=== PATIENT | female | born 1995 | race Caucasian/White ===

== ENCOUNTER 2017-08-13 15:44 | Emergency (ER) | payer OTHER ==
[~2017-08-13 15:44] MED LIST: AZIT500T2 PO; FLUC150T PO; PREN1CHW7 PO; ZITH1POW PO
--- NOTE | 2017-08-13 16:48 | PD ---
HPI Travel History International Travel<30 Days: No Contact w/Intl Traveler<30Days: No Known Affected Area: No History of Present Illness HPI 22yr old at 23/4 weeks for decreased movement. She didn't feel the baby moved in the past 24 hrs and was concerned. She requested NST. She denies LOF, vaginal bleeding, and contractions. No other complaints. She receives [facility] care at [facility]. History Past Medical History Narrative Medical Anemia Obstetric History Obstetric History Past Surgical History Surgical History: No Previous Surgery Family History Family History: Negative Social History Alcohol Use: No Tobacco Use: No (smokes during 1st month of , but discontinued therafter ) Substance Abuse: No Allergies-Medications (Allergen,Severity, Reaction): Coded Allergies: No Known Allergies (Unverified , 08/05/17) Home Meds Active Scripts Azithromycin (Azithromycin) 500 Mg Tab, 500 MG PO DAILY for Infection, #2 TAB 0 Refills Prov:Dana Curry CNM [facility] 08/07/17 Azithromycin Powder Packet (Zithromax Powder Packet) 1 Gm Powderpack, 1 GM PO ONCE for Infection, #1 PKT 0 Refills Mix with water according to packet instructions before use. Prov:Sherrie SimmsP 08/05/17 Fluconazole (Fluconazole) 150 Mg Tab, 150 MG PO ONCE for Infection, #1 TAB 0 Refills Prov:Sherrie Simms 07/14/17 Vit W/ Ferric Phospha (Vitafol Gummies 3.33-0.333-34.8 mg) 1 Chw Chw, 3 GUM PO DAILY, #90 BOTTLE 11 Refills Prov:Sherrie SimmsP 07/08/17 Review of Systems Except as stated in HPI: all other systems reviewed are Neg Physical Exam Narrative GENERAL: Well-nourished, well-developed patient. SKIN: Warm and dry. HEAD: Normocephalic and atraumatic. EYES: No scleral icterus. No injection or drainage. ENT: No nasal drainage noted. Mucous membranes pink. Airway patent. NECK: Supple, trachea midline. No JVD. CARDIOVASCULAR: Regular rate and rhythm without murmurs, gallops, or rubs. RESPIRATORY: Breath sounds equal bilaterally. No accessory muscle use. ABDOMEN/GI: Abdomen soft, non-tender, bowel sounds present, no rebound, no guarding FHT's: Category: 1 Baseline: 120s Reactive: yes Variability: moderate Decels: no EXTREMITIES: No cyanosis or edema. BACK: Nontender without obvious deformity. NEUROLOGICAL: Awake and alert. Motor and sensory grossly within normal limits. Data Data Vital Signs Reviewed: Yes MDM Plan 22yr old at 23/4 weeks for decreased movement -IUP, category 1, reassuring -continue routine OB care Diagnosis Diagnosis: Primary Impression: Decreased movement Disposition: 01 DISCHARGE HOME Condition: Good Sena Guidry MD R1 Aug 13, 2017 16:48
== END 2017-08-13 18:15 | disposition home or self-care (01) ==
LOC: HOBED 15:44
DX: O36.8120 Decreased fetal movements, second trimester, not applicable or unspecified (principal)
CPT/HCPCS: 99283

== ENCOUNTER → 2017-08-19 | Outpatient (CLI) | payer MEDICAID, OTHER ==
[~2017-08-19] MED LIST changes: +TERC0.4C2 VAGINAL
== END ==
LOC: HPND 11:03
PROVIDERS: ATTEND Obstetrics & Gynecology
DX: O35.0XX0 Maternal care for (suspected) central nervous system malformation in fetus, not applicable or unspecified (principal); O09.32 Supervision of pregnancy with insufficient antenatal care, second trimester; O35.2XX0 Maternal care for (suspected) hereditary disease in fetus, not applicable or unspecified; Z3A.00 Weeks of gestation of pregnancy not specified
CPT/HCPCS: 76811

== ENCOUNTER 2017-08-29 19:46 | Emergency (ER) | payer OTHER ==
[~2017-08-29 19:46] MED LIST changes: -TERC0.4C2 VAGINAL
[2017-08-29 19:49] VITALS: BP 134/77; PULSE 71; RESP 18; TEMP 97.9; O2SAT 100
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
[2017-08-29 23:34] LABS: AUTOMATED NEUTROPHIL # 7.7 TH/MM3 (1.8-7.7); BASOPHIL % 0.2 % (0.0-2.0); EOSINOPHIL # 0.2 TH/MM3 (0-0.4); EOSINOPHIL % 1.9 % (0.0-4.0); HEMATOCRIT 30.3 % (35.0-46.0); HEMO FLAGS DIFF FINAL; LYMPH % 11.7 % (9.0-44.0); LYMPHOCYTE # 1.2 TH/MM3 (1.0-4.8); MEAN CELL VOLUME 90.5 FL (80.0-100.0); MEAN CORPUSCULAR HEMOGLOBIN 31.9 PG (27.0-34.0); MEAN CORPUSCULAR HGB CONC 35.2 % (32.0-36.0); MONO % 9.5 % (0.0-8.0); NEUT % 76.7 % (16.0-70.0); PLATELET COUNT 195 TH/MM3 (150-450); RED BLOOD COUNT 3.35 MIL/MM3 (4.00-5.30); RED CELL DISTRIBUTION WIDTH 12.5 % (11.6-17.2); WHITE BLOOD COUNT 10.1 TH/MM3 (4.0-11.0)
[2017-08-30 00:20] LABS: RUBELLA IGG ANTIBODY 82.1 IU/mL (10.0-500.0); RUBELLA STATUS IMMUNE (IMMUNE)
[2017-08-30 00:54] VITALS: BP 104/63; PULSE 65; RESP 16; TEMP 98
[2017-09-02] MEDS ORDERED: TERC0.4C2 VAGINAL (09:52)
== END 2017-08-30 01:30 | disposition home or self-care (01) ==
LOC: NEPC 19:46 → HOBED 08-30 01:30
DX: O26.892 Other specified pregnancy related conditions, second trimester (principal); S90.32XA Contusion of left foot, initial encounter; R10.9 Unspecified abdominal pain; V49.59XA Passenger injured in collision with other motor vehicles in traffic accident, initial encounter; Z3A.26 26 weeks gestation of pregnancy
CPT/HCPCS: 80074; 85025; 86592; 86703; 86762; 86850; 86900; 86901; 90384; 96372; J2790

== ENCOUNTER 2017-10-07 18:14 | Emergency (ER) | payer OTHER ==
[~2017-10-07] VITALS: Ht 165.1 cm; Wt 66.7 kg
[~2017-10-07 18:14] MED LIST changes: -AZIT500T2 PO; -FLUC150T PO; -ZITH1POW PO
--- NOTE | 2017-10-07 19:40 | PD ---
HPI Chief Complaint 31 weeks Low abdominal pain 1 day Travel History International Travel<30 Days: No Contact w/Intl Traveler<30Days: No Known Affected Area: No History of Present Illness HPI Pt is a 22 yo . EDC 12-09-2017 care with [facility]. Pt reports suprapubic pain since this morning Initially constant but now only with walking. Denies dysuria Active movements No fevers or chills. No vaginal bleeding or leaking. no uterine contractions. Weeks Gestation: 31 Para: 0 : 1 History Past Medical History Medical History: Denies Significant Hx Past Surgical History Surgical History: No Previous Surgery Family History Family History: Negative Social History Alcohol Use: No Tobacco Use: No Substance Abuse: No Allergies-Medications (Allergen,Severity, Reaction): Coded Allergies: No Known Allergies (Unverified Adverse Reaction, Unknown, 09/29/17) Home Meds Active Scripts Vit W/ Ferric Phospha (Vitafol Gummies 3.33-0.333-34.8 mg) 1 Chw Chw, 3 GUM PO DAILY, #90 BOTTLE 11 Refills Prov:Sherrie Simms 07/08/17 Review of Systems Except as stated in HPI: all other systems reviewed are Neg Physical Exam Narrative GENERAL: Well-nourished, well-developed patient. SKIN: Warm and dry. HEAD: Normocephalic and atraumatic. EYES: No scleral icterus. No injection or drainage. ENT: No nasal drainage noted. Mucous membranes pink. Airway patent. NECK: Supple, trachea midline. No JVD. CARDIOVASCULAR: Regular rate and rhythm without murmurs, gallops, or rubs. RESPIRATORY: Breath sounds equal bilaterally. No accessory muscle use. BREASTS: Bilateral exam showed no masses , no retractions, no nipple discharge. ABDOMEN/GI: Abdomen soft, non-tender, bowel sounds present, no rebound, no guarding Gravid to [31] weeks size Fundal Height: [31cm] GENITOURINARY: External Genitalia: intact and normal in appearance BUS glands: [wnl] Cervix: [soft] Dilatation: [closed] Effacement: [long] Station: [-3] Presentation: [vertex] Membranes: [intact] Uterine Contractions: [none] FHT's: Category: [1] Baseline: [130s] Reactive: [-] Variability: [moderate] Decels: [none] EXTREMITIES: No cyanosis or edema. BACK: Nontender without obvious deformity. No CVA tenderness. NEUROLOGICAL: Awake and alert. Motor and sensory grossly within normal limits. Five out of 5 muscle strength in all muscle groups. Normal speech. Data Data Vital Signs Reviewed: Yes [facility] Medical Record Reviewed: Yes Plan 22 yo at 31 weeks Presents with 1 day suprapubic pain, worse with movement Cervix is closed,long. Likely musculoskeletal. Advised modified bed rest. RTW 10-09-2017 Diagnosis Diagnosis: Primary Impression: 31 weeks gestation of Additional Impression: Pain of round ligament affecting , antepartum Disposition: DISCHARGE HOME Condition: Stable Emory Weber MD Oct 07, 2017 19:40
== END 2017-10-07 19:44 | disposition home or self-care (01) ==
LOC: HOBED 18:14
DX: O26.893 Other specified pregnancy related conditions, third trimester (principal); R10.2 Pelvic and perineal pain; Z3A.31 31 weeks gestation of pregnancy
CPT/HCPCS: 99283

== ENCOUNTER 2017-12-05 09:48 | Inpatient (IN) | payer OTHER ==
[2017-12-05] VITALS (101 sets, daily range): BP systolic 76–147; BP diastolic 39–97; PULSE 62–231; RESP 16–20; TEMP 97.8–98.4
[~2017-12-05] VITALS: Ht 157.5 cm; Wt 52.0 kg
[2017-12-05] MEDS ORDERED: LACTATED RINGER'S 1000 ML INJ 1,000 ML IV PRN (10:34)
--- NOTE | 2017-12-05 10:42 | HHI.HP ---
HPI Chief Complaint Contraction pain Date Seen: Dec 05, 2017 Time Seen: 10:35 Travel History International Travel<30 Days: No Contact w/Intl Traveler<30Days: No Known Affected Area: No History of Present Illness HPI Patient is 22-year-old white female at 40 weeks who presents colliding of painful contractions since early this morning. Pains are getting stronger and more intense according the patient. Denies ruptured membranes or bleeding. [facility]. heart rate tracing is reactive contractions seen every 2-3 minutes Weeks Gestation: 40 Para: 0 : 1 History Social History Alcohol Use: No Tobacco Use: Yes Substance Abuse: No Allergies-Medications (Allergen,Severity, Reaction): Coded Allergies: No Known Allergies (Unverified Adverse Reaction, Unknown, 11/09/17) Home Meds Active Scripts Vit W/ Ferric Phospha (Vitafol Gummies 3.33-0.333-34.8 mg) 1 Chw Chw, 3 GUM PO DAILY, #90 BOTTLE 11 Refills Prov:Sherrie Simms 07/08/17 Review of Systems General / Constitutional: No: Fever, Weight Gain, Chills, Other Eyes: No: Diploplia, Blurred Vision, Visual changes, Pain, Photophobia HENT: No: Headaches, Vertigo, Lightheadedness Cardiovascular: No: Irregular Rhythm, Chest Pain or Discomfort, Palpitations, Tachycardia, Syncope, Varicosities, Edema, Cyanosis Respiratory: No: Cough, Short of Breath, Other Gastrointestinal: Abdominal Pain, No: Nausea, Vomiting, Diarrhea Genitourinary: No: Decreased Urinary Output, Oliguria Musculoskeletal: No: Limited ROM, Weakness, Cramping, Edema, Pain Skin: No Rash, No Itching, No Dryness, No Lumps, No Change in Pigmentation, No Change in Nails, No Alopecia, No Lesions Neurologic: No: Weakness, Dizziness, Syncope, Focal Abnormalities, Coordination Problem, Headache, Slurred Speech, Seizures Psychiatric: No: Depression, Suicidal Ideations, Homicidal Ideation Endocrine: No: Heat Intolerance, Cold Intolerance, Polydipsia, Polyuria, Other Physical Exam Narrative GENERAL: Well-nourished, well-developed patient. SKIN: Warm and dry. HEAD: Normocephalic and atraumatic. EYES: No scleral icterus. No injection or drainage. ENT: No nasal drainage noted. Mucous membranes pink. Airway patent. NECK: Supple, trachea midline. No JVD. CARDIOVASCULAR: Regular rate and rhythm without murmurs, gallops, or rubs. RESPIRATORY: Breath sounds equal bilaterally. No accessory muscle use. BREASTS: Bilateral exam showed no masses , no retractions, no nipple discharge. ABDOMEN/GI: Abdomen soft, non-tender, bowel sounds present, no rebound, no guarding Gravid to [-37] weeks size Fundal Height: [36-] GENITOURINARY: External Genitalia: intact and normal in appearance BUS glands: [-] Cervix: [post-] Dilatation: [-3] Effacement: [-90] Station: [-1] Presentation: [-vtx] Membranes: [intact ] Uterine Contractions: [reg q 2-3 min-] FHT's: Category: [1-] Baseline: [-133] Reactive: [R-] Variability: [-mod] Decels: [-none] EXTREMITIES: No cyanosis or edema. BACK: Nontender without obvious deformity. No CVA tenderness. NEUROLOGICAL: Awake and alert. Motor and sensory grossly within normal limits. Five out of 5 muscle strength in all muscle groups. Normal speech. Caprini VTE Risk Assessment Caprini VTE Risk Assessment: No/Low Risk (score <= 1) Caprini Risk Assessment Model Point Value = 1 Point Value = 2 Point Value = 3 Point Value = 5 Age 41-60 Minor surgery BMI > 25 kg/m2 Swollen legs Varicose veins or History of unexplained or recurrent spontaneous Oral contraceptives or hormone replacement Sepsis (< 1 month) Serious lung disease, including pneumonia (< 1 month) Abnormal pulmonary function Acute myocardial infarction Congestive heart failure (< 1 month) History of inflammatory bowel disease Medical patient at bed rest Age 61-74 Arthroscopic surgery Major open surgery (> 45 min) Laparoscopic surgery (> 45 min) Malignancy Confined to bed (> 72 hours) Immobilizing plaster cast Central venous access Age >= 75 History of VTE Family history of VTE Factor V Leiden Prothrombin [id number] Lupus anticoagulant Anticardiolipin antibodies Elevated serum homocysteine Heparin-induced thrombocytopenia Other congenital or acquired thrombophilia Stroke (< 1 month) Elective arthroplasty Hip, pelvis, or leg fracture Acute spinal cord injury (< 1 month) Prophylaxis Regimen Total Risk Factor Score Risk Level Prophylaxis Regimen 0-1 Low Early ambulation 2 Moderate Order ONE of the following: *Sequential Compression Device (SCD) *Heparin 5000 units SQ BID 3-4 Higher Order ONE of the following medications: *Heparin 5000 units SQ TID *Enoxaparin/Lovenox 40 mg SQ daily (WT < 150 kg, CrCl > 30 mL/min) *Enoxaparin/Lovenox 30 mg SQ daily (WT < 150 kg, CrCl > 10-29 mL/min) *Enoxaparin/Lovenox 30 mg SQ BID (WT < 150 kg, CrCl > 30 mL/min) AND/OR *Sequential Compression Device (SCD) 5 or more Highest Order ONE of the following medications: *Heparin 5000 units SQ TID (Preferred with Epidurals) *Enoxaparin/Lovenox 40 mg SQ daily (WT < 150 kg, CrCl > 30 mL/min) *Enoxaparin/Lovenox 30 mg SQ daily (WT < 150 kg, CrCl > 10-29 mL/min) *Enoxaparin/Lovenox 30 mg SQ BID (WT < 150 kg, CrCl > 30 mL/min) AND *Sequential Compression Device (SCD) Data Data Orders Orders Ob (2e) Additional Admit Info (12/05/17 10:31) Admit To Inpatient (12/05/17 ) Vital Signs (Adult) .Per protocol (12/05/17 10:34) Heart (12/05/17 10:34) Amnioinfusion (12/05/17 10:34) Urinary Catheter Management .ONCE (12/05/17 10:34) Diet Npo (12/05/17 Lunch) Lactated Ringer's 1000 Ml Inj (Lr 1000 M (12/05/17 10:34) Lactated Ringer's 1000 Ml Inj (Lr 1000 M (12/05/17 10:34) Sodium Chlorid 0.9% 500 Ml Inj (Ns 500 M (12/05/17 10:45) Sodium Chlor 0.9% 1000 Ml Inj (Ns 1000 M (12/05/17 10:54) Lidocaine 1% Inj (50 Ml) (Xylocaine 1% I (12/05/17 10:45) Citric Acid-Sodium Citrate Liq (Bicitra (12/05/17 10:45) Fentanyl Inj (Fentanyl Inj) (12/05/17 10:45) Fentanyl Inj (Fentanyl Inj) (12/05/17 10:45) Complete Blood Count With Diff (12/05/17 10:34) Hold Clot (12/05/17 10:34) Abo/Rh Blood Type (12/05/17 10:34) Urinalysis - C+S If Indicated (12/05/17 10:34) Drug Screen, Random Urine (12/05/17 10:34) Type And Screen (12/05/17 10:34) Resp Oxygen Non Rebreathe Mask (12/05/17 ) ^ Epidural / Intrathecal Infus (12/05/17 10:34) Oxytocin 30 Units-500ml Premix (Pitocin (12/05/17 10:45) Lidocaine 1% Inj (50 Ml) (Xylocaine 1% I (12/05/17 10:45) Light Mineral Oil (Muri-Lube Oil) (12/05/17 10:45) Assessment/Plan Assessment and Plan This patient is a 22-year-old white female at 40 weeks who presents in early labor. Cervix is 3/90/-1/vertex with intact membranes. heart tones are reactive contractions noted every 2-3 minutes that are painful. [facility] and has had steady Ramos care as well as a GBS culture done which is pending at this time we cannot find the results once we know that we will move along with her therapy if needed Impression-40 weeks in early labor Plan--admit to labor and delivery, manage labor appropriately, anticipate vaginal delivery Trell Webb II, MD Dec 05, 2017 10:41
[2017-12-05] MEDS ORDERED: OXYTOCIN 30 UNITS-500ML PREMIX 500 ML IV ONE (10:45)
[2017-12-05] MEDS ORDERED: CITRIC ACID-SODIUM CITRATE LIQ 30 ML UDC PO SCH (10:45)
[2017-12-05] MEDS ORDERED: LIDOCAINE HCL 1% 50 ML VIAL I-DERMAL PRN (10:45)
[2017-12-05] MEDS ORDERED: SODIUM CHLORID 0.9% 500 ML INJ 500 ML IV PRN (10:45)
[2017-12-05] MEDS ORDERED: LIDOCAINE HCL 1% 50 ML VIAL INFIL PRN (10:45)
[2017-12-05] MEDS ORDERED: MINERAL OIL 10 ML VIAL TOPICAL PRN (10:45)
[2017-12-05] MEDS ORDERED: SODIUM CHLOR 0.9% 1000 ML INJ 1,000 ML IV PRN (10:54)
[2017-12-05] MEDS ORDERED: fentaNYL 2MCG-BUPIV 0.125% INJ 100 ML ONE (11:34)
[2017-12-05 11:41] LABS: AUTOMATED NEUTROPHIL # 6.7 TH/MM3 (1.8-7.7); BASOPHIL % 0.3 % (0.0-2.0); EOSINOPHIL # 0.1 TH/MM3 (0-0.4); EOSINOPHIL % 0.9 % (0.0-4.0); HEMATOCRIT 35.1 % (35.0-46.0); LYMPH % 13.1 % (9.0-44.0); LYMPHOCYTE # 1.1 TH/MM3 (1.0-4.8); MEAN CORPUSCULAR HEMOGLOBIN 28.7 PG (27.0-34.0); MEAN CORPUSCULAR HGB CONC 34.1 % (32.0-36.0); MEAN PLATELET VOLUME 10.2 FL (7.0-11.0); MONO % 8.4 % (0.0-8.0); MONOCYTE # 0.7 TH/MM3 (0-0.9); NEUT % 77.3 % (16.0-70.0); PLATELET COUNT 219 TH/MM3 (150-450); RED BLOOD COUNT 4.18 MIL/MM3 (4.00-5.30); RED CELL DISTRIBUTION WIDTH 13.8 % (11.6-17.2); WHITE BLOOD COUNT 8.7 TH/MM3 (4.0-11.0)
[2017-12-05 11:48] LABS: BILIRUBIN, URINE NEG (NEG); BLOOD, URINE LARGE (NEG); GLUCOSE,URINE NEG (NEG); KETONE, URINE NEG (NEG); MUCUS URINE FEW /lpf (OCC); NITRITE,URINE NEG (NEG); SQUAMOUS EPITHELIAL CELL URINE 9 /hpf (0-5); TRANSITIONAL EPI CELLS, URINE <1 /hpf; URINE COLOR YELLOW (YELLW/STRAW); URINE LEUKOCYTE ESTERASE MOD (NEG)
[2017-12-05] MEDS: LACTATED RINGER'S 1000 ML INJ 1,000 ML IV SCH ×2 (12:10→13:57)
[2017-12-05] MEDS ORDERED: ePHEDrine/NS 25 MG/5 ML SYRINGE ONE (13:01)
[2017-12-05] MEDS ORDERED: DO NOT ADMINISTER ANTICOAGULANTS PRN (13:15)
[2017-12-05] MEDS ORDERED: NO SYSTEM NARCOTICS PRN (13:15)
[2017-12-05] MEDS ORDERED: ePHEDrine/NS 25 MG/5 ML SYRINGE IV PUSH PRN (13:15)
[2017-12-05] MEDS ORDERED: OXYTOCIN 30 UNITS-500ML PREMIX 500 ML IV PRN (14:30)
[2017-12-05] MEDS ORDERED: DIPHTH/TETANUS/ACEL PERTUSSIS (BOOSTER) 0.5 ML VIAL/PFS IM ONE (16:00)
[2017-12-05] MEDS ORDERED: MEASLES, MUMPS, RUBELLA VACCINE 0.5 ML VIAL SQ ONE (16:00)
[2017-12-05] MEDS: fentaNYL 2MCG-BUPIV 0.125% 100 ML EPIDURAL SCH ×2 (19:24→20:59)
--- NOTE | 2017-12-05 21:02 | PD.OB.DELI ---
Weeks gestation: 40 Artificial ROM date: Dec 05, 2017 Anesthesia: Epidural Episiotomy: None Vaginal Delivery: Normal Presentation: Occiput anterior Nuchal Cord: x1 Delayed cord clamping (45 sec): No Infant: Female Delivery date: Dec 05, 2017 Delivery time: 20:32 One Minute : 8 Five Minute : 8 Weight: 3015 gm Placenta: Spontaneous delivery, Intact Laceration: Vaginal laceration, 1 deg Repair: Chromic interrupted Estimated blood loss: 100 cc Additional Information Tight nuchal cord cut on the perineum Trell Webb II, MD Dec 05, 2017 21:02
[2017-12-05] MEDS ORDERED: ZOLPIDEM TARTRATE 5 MG TAB PO PRN (21:15)
[2017-12-05] MEDS ORDERED: ONDANSETRON ODT 4 MG TAB PO PRN (21:15)
[2017-12-05] MEDS ORDERED: SODIUM CHLORIDE 0.9% FLUSH 10 ML FLUSH IV FLUSH PRN (21:15)
[2017-12-05] MEDS ORDERED: oxyCODONE/ACETAMINOPHEN 5 MG/325 MG TAB PO PRN (21:15)
[2017-12-05] MEDS ORDERED: DOCUSATE SODIUM 50 MG/SENNA 8.6 MG TAB PO PRN (21:15)
[2017-12-05] MEDS ORDERED: WITCH HAZEL 50%/GLYCERIN 12.5% 40 PAD JAR TOPICAL PRN (21:15)
[2017-12-05] MEDS ORDERED: ACETAMINOPHEN 325 MG TAB PO PRN (21:15)
[2017-12-05] MEDS ORDERED: OXYTOCIN 30 UNITS-500ML PREMIX 500 ML IV SCH (21:15)
[2017-12-05] MEDS ORDERED: BENZOCAINE 20% TOPICAL SPRAY 60 ML CAN TOPICAL PRN (21:15)
[2017-12-05] MEDS ORDERED: ALUMINUM/MAGNESIUM/SIMETH 30 ML CUP PO PRN (21:15)
[2017-12-06] MEDS: LACTATED RINGER'S 1000 ML INJ 1,000 ML IV SCH ×2 (07:22→18:34)
[2017-12-06] MEDS ORDERED: SODIUM CHLORIDE 0.9% FLUSH 10 ML FLUSH IV FLUSH SCH (09:00)
--- NOTE | 2017-12-06 09:17 | HHI.OB ---
Subjective Post Day: 1 Remarks Patient seen and examined this morning. AFVSS overnight. day #1. Decreased lochia. Denies dysuria. Patient states her pain is tolerable. No breast tenderness. She is feeding the baby via breast. Appetite good. No nausea or vomiting. Endorses flatus. Ambulating well without issues. Denies fevers, chills, CP, SOB. She otherwise has no other complaints or concerns this morning. Objective Vitals/I&O Vital Signs Date Time Temp Pulse Resp B/P (MAP) Pulse Ox O2 Delivery O2 Flow Rate FiO2 12/05/17 21:31 66 129/77 (94) 12/05/17 21:16 69 131/78 (95) 12/05/17 21:01 83 135/86 (102) 12/05/17 20:45 88 119/85 (96) 12/05/17 20:15 84 147/76 (99) 12/05/17 20:01 78 122/86 (98) 12/05/17 19:45 79 123/96 (105) 12/05/17 19:30 77 107/68 (81) 12/05/17 19:12 98.2 17 12/05/17 19:05 84 12/05/17 19:00 97 12/05/17 19:00 80 106/62 (77) 12/05/17 18:55 85 12/05/17 18:50 76 12/05/17 18:46 74 121/71 (88) 12/05/17 18:45 80 12/05/17 18:40 76 12/05/17 18:35 96 12/05/17 18:31 231 134/97 (109) 12/05/17 18:30 81 12/05/17 18:25 78 12/05/17 18:20 84 12/05/17 18:16 75 96/60 (72) 12/05/17 18:15 79 12/05/17 18:01 73 115/50 (71) 12/05/17 18:00 76 12/05/17 17:59 97.9 12/05/17 17:59 18 12/05/17 17:55 82 12/05/17 17:50 87 12/05/17 17:45 70 12/05/17 17:45 71 125/70 (88) 2/24/18 17:40 80 224/18 17:35 84 224/18 17:30 72 2/18 17:30 84 116/82 (93) 18 17:25 92 218 17:20 81 218 17:15 75 122/83 (96) 18 17:15 74 218 17:10 79 18 17:05 78 18 17:00 70 218 17:00 16 18 17:00 82 121/73 (89) 12/05/17 17:00 98.0 18 16:55 89 12/05/17 16:50 79 18 16:45 70 18 16:45 75 121/80 (94) 12/05/17 16:40 86 18 16:35 80 18 16:30 78 18 16:30 74 120/75 (90) 12/05/17 16:25 98 218 16:20 94 218 16:15 72 125/68 (87) 12/05/17 16:15 75 218 16:10 76 18 16:05 77 18 16:00 98.2 18 18 16:00 72 117/69 (85) 12/05/17 16:00 71 218 15:55 73 2/18 15:50 76 2/18 15:46 75 112/75 (87) 18 15:45 74 2/18 15:40 71 2/18 15:35 69 224/18 15:30 74 224/18 15:30 67 111/71 (84) 218 15:25 65 2/18 15:20 65 224/18 15:15 73 224/18 15:15 69 107/63 (78) 12/05/17 15:00 98.0 16 18 15:00 75 218 15:00 74 112/71 (85) 12/05/17 14:55 83 218 14:50 72 218 14:46 155 93/52 (66) 218 14:45 73 2/18 14:40 79 218 14:35 70 2/18 14:30 68 113/72 (86) 18 14:30 67 218 14:25 75 224/18 14:20 65 218 14:17 75 104/67 (79) 12/05/17 14:15 66 218 14:10 74 2/18 14:05 74 218 14:00 74 218 14:00 74 115/77 (90) 12/05/17 13:59 98.4 12/05/17 13:59 16 12/05/17 13:55 76 12/05/17 13:50 71 12/05/17 13:45 68 109/66 (80) 12/05/17 13:45 64 12/05/17 13:30 66 12/05/17 13:30 84 110/67 (81) 18 13:25 80 218 13:20 69 2/18 13:15 64 2/18 13:15 64 113/64 (80) 12/05/17 13:10 63 12/05/17 13:10 69 102/58 (73) 12/05/17 13:07 62 97/53 (68) 218 13:06 66 76/39 (51) 12/05/17 13:05 71 12/05/17 13:02 66 104/50 (68) 18 13:01 65 101/47 (65) 218 13:00 66 218 12:59 80 76/45 (55) 18 12:55 79 116/75 (89) 218 12:55 84 2/18 12:50 113/77 (89) 18 12:50 75 2/18 12:50 73 224/18 12:45 68 2/18 12:45 64 114/74 (87) 18 12:40 71 218 12:40 75 111/74 (86) 2/24/18 12:35 75 12/05/17 12:35 87 114/83 (93) 12/05/17 12:30 81 118/83 (95) 12/05/17 12:30 71 12/05/17 12:28 67 131/82 (98) 12/05/17 12:25 71 12/05/17 12:15 98.0 20 12/05/17 12:00 97.8 69 18 98/60 (73) 12/05/17 12:00 68 128/84 (99) Objective Remarks GENERAL: Well-nourished, well-developed patient. CARDIOVASCULAR: Regular rate and rhythm without murmurs, gallops, or rubs. RESPIRATORY: Breath sounds equal bilaterally. No accessory muscle use. ABDOMEN/GI: Abdomen soft, non-tender. Fundus: Firm, non-tender at umbilicus. GENITOURINARY: Light to moderate bleeding. EXTREMITIES: No cyanosis or edema, non-tender, without signs of DVT. Medications and IVs Current Medications Medications (Trade) Dose Ordered Sig/Dileep Route Start Time Stop Time Status Last Admin Lactated Ringer's 1,000 ml @ 125 mls/hr Q8H IV 12/05/17 10:34 12/05/17 13:57 Lactated Ringer's 1,000 ml @ 3,000 mls/hr Q20M PRN IV 12/05/17 10:34 12/05/17 11:15 Sodium Chloride 500 ml @ 1,000 mls/hr ONCE PRN IV 12/05/17 10:45 12/06/17 10:44 Sodium Chloride 1,000 ml @ 100 mls/hr Q10H PRN IV 12/05/17 10:54 (Xylocaine 1% Inj (50 ml)) 0.1 ml UNSCH X1 PRN I-DERMAL 12/05/17 10:45 12/08/17 10:44 (Bicitra Liq) 30 ml [employer]PER[employer] PO 12/05/17 10:45 12/09/17 10:44 (fentaNYL INJ) 50 mcg Q1H PRN IV PUSH 12/05/17 10:45 (fentaNYL INJ) 100 mcg Q1H PRN IV PUSH 12/05/17 10:45 (Xylocaine 1% Inj (50 ml)) 10 ml UNSCH X1 PRN INFIL 12/05/17 10:45 12/07/17 10:44 (Muri-Lube Oil) 10 ml UNSCH PRN TOPICAL 12/05/17 10:45 12/05/17 20:59 Miscellaneous Information No systemic narcotics to be given except... UNSCH PRN .XX 12/05/17 13:15 12/06/17 13:14 Miscellaneous Information DO NOT ADMINISTER ANY ANTICOAGUL... UNSCH PRN .XX 12/05/17 13:15 12/06/17 13:14 Fentanyl/ Bupivacaine HCl 100 ml @ 0 mls/hr TITRATE EPIDURAL 12/05/17 13:15 12/05/17 20:59 (ePHEDrine/NS 25 MG/5 ML SYR) 10 mg UNSCH PRN IV PUSH 12/05/17 13:15 12/06/17 13:14 12/05/17 13:11 (NS Flush) 2 ml BID IV FLUSH 12/06/17 09:00 (NS Flush) 2 ml UNSCH PRN IV FLUSH 12/05/17 21:15 (Tylenol) 650 mg Q4H PRN PO 12/05/17 21:15 (Motrin) 800 mg Q8H PRN PO 12/05/17 21:15 (Percocet 5-325 Mg) 1 tab Q4H PRN PO 12/05/17 21:15 (Americaine 20% Top Spr) 1 spray Q4H PRN TOPICAL 12/05/17 21:15 (Tucks Pads) 1 applic QID PRN TOPICAL 12/05/17 21:15 (Iraida-Colace) 2 tab Q12H PRN PO 12/05/17 21:15 (Ambien) 5 mg HS PRN PO 12/05/17 21:15 (Mag-Al Plus Susp Liq) 15 ml Q8H PRN PO 12/05/17 21:15 (Zofran Odt) 4 mg Q6H PRN PO 12/05/17 21:15 Assessment/Plan Problem List: (1) care following vaginal delivery ICD Codes: Z39.2 - Encounter for routine follow-up Assessment and Plan 22 year old PPD#1. 1. Care - AFVSS - Encouraged OOB, as tolerated - Motrin and Percocet prn pain - Advised pelvic rest x 6 weeks - - Contraception: discussed with patient this AM, not desiring at this time - Will f/u with OB provider within 6 weeks - Anticipate discharge tomorrow pending clinical course dw Himanshu Cardozo MD Dec 06, 2017 09:17
[2017-12-06] MEDS: IBUPROFEN 800 MG TAB PO PRN ×2 (13:18→21:50)
--- NOTE | 2017-12-07 07:21 | HHI.OB ---
Subjective Post Day: 2 Remarks day #2 AFVSS overnight. Decreased lochia. Denies dysuria. No breast tenderness. She is feeding the baby via breast. Appetite good. No nausea or vomiting. Positive flatus. Ambulating well. Denies calf pain or shortness of breath. Otherwise, she is doing well this morning and has no other complaints. Objective Objective Remarks GENERAL: Well-nourished, well-developed patient. CARDIOVASCULAR: Regular rate and rhythm without murmurs, gallops, or rubs. RESPIRATORY: Breath sounds equal bilaterally. No accessory muscle use. ABDOMEN/GI: Abdomen soft, non-tender. Fundus: Firm, non-tender at umbilicus. GENITOURINARY: Light to moderate bleeding. EXTREMITIES: No cyanosis or edema, non-tender, without signs of DVT. Medications and IVs Current Medications Medications (Trade) Dose Ordered Sig/Dileep Route Start Time Stop Time Status Last Admin Lactated Ringer's 1,000 ml @ 125 mls/hr Q8H IV 12/05/17 10:34 12/05/17 13:57 Lactated Ringer's 1,000 ml @ 3,000 mls/hr Q20M PRN IV 12/05/17 10:34 12/05/17 11:15 Sodium Chloride 1,000 ml @ 100 mls/hr Q10H PRN IV 12/05/17 10:54 (Xylocaine 1% Inj (50 ml)) 0.1 ml UNSCH X1 PRN I-DERMAL 12/05/17 10:45 12/08/17 10:44 (Bicitra Liq) 30 ml ENVIRONMENTAL PROFESSIONAL PO 12/05/17 10:45 12/09/17 10:44 (fentaNYL INJ) 50 mcg Q1H PRN IV PUSH 12/05/17 10:45 (fentaNYL INJ) 100 mcg Q1H PRN IV PUSH 12/05/17 10:45 (Xylocaine 1% Inj (50 ml)) 10 ml UNSCH X1 PRN INFIL 12/05/17 10:45 12/07/17 10:44 (Muri-Lube Oil) 10 ml UNSCH PRN TOPICAL 12/05/17 10:45 12/05/17 20:59 Fentanyl/ Bupivacaine HCl 100 ml @ 0 mls/hr TITRATE EPIDURAL 12/05/17 13:15 12/05/17 20:59 (NS Flush) 2 ml BID IV FLUSH 12/06/17 09:00 (NS Flush) 2 ml UNSCH PRN IV FLUSH 12/05/17 21:15 (Tylenol) 650 mg Q4H PRN PO 12/05/17 21:15 (Motrin) 800 mg Q8H PRN PO 12/05/17 21:15 12/06/17 21:50 (Percocet 5-325 Mg) 1 tab Q4H PRN PO 12/05/17 21:15 (Americaine 20% Top Spr) 1 spray Q4H PRN TOPICAL 12/05/17 21:15 (Tucks Pads) 1 applic QID PRN TOPICAL 12/05/17 21:15 (Iraida-Colace) 2 tab Q12H PRN PO 12/05/17 21:15 (Ambien) 5 mg HS PRN PO 12/05/17 21:15 (Mag-Al Plus Susp Liq) 15 ml Q8H PRN PO 12/05/17 21:15 (Zofran Odt) 4 mg Q6H PRN PO 12/05/17 21:15 Assessment/Plan Problem List: (1) care following vaginal delivery ICD Codes: Z39.2 - Encounter for routine follow-up Assessment and Plan 22 year old PPD#2. 1. Care - AFVSS - Encouraged OOB, as tolerated - Motrin prn pain - Advised pelvic rest x 6 weeks - - Contraception: discussed with patient this AM, not desiring at this time, discussed pelvic rest and delaying for the next few weeks. Patient expressed understanding and agreed. - Will f/u with OB provider within 6 weeks - Anticipate discharge today dw Dr. Adrian Burgos,Isak Self MD R1 Dec 07, 2017 07:21
[2017-12-07] MEDS: IBUPROFEN 800 MG TAB PO PRN (08:23)
[2017-12-07] MEDS ORDERED: IBUP1TAB7 PO (09:08)
[2017-12-07] MEDS ORDERED: PERI PO (09:08)
--- NOTE | 2017-12-07 09:09 | HHI.DCPOC ---
Discharge Care Plan Diagnosis: (1) Vaginal delivery Report Symptoms to Your Doctor -Temperature above 100.5 degrees -Redness, of incision or excessive or foul smelling drainage -Unusual pain or calf pain -Increased vaginal bleeding -Painful or difficulty urinating -Feelings of extreme sadness or anxiety after 2 weeks Goals to Promote Your Health * To prevent worsening of your condition and complications * To maintain your health at the optimal level Directions to Meet Your Goals Take your medications as prescribed Follow your dietary instruction Follow activity as directed Ensure plenty of rest for recovery Drink fluids for hydration Keep your appointments as scheduled Take your immunizations and boosters as scheduled If your symptoms worsen call your PCP, if no PCP go to Urgent Care Center or Emergency Room Smoking is Dangerous to Your Health. Avoid second hand smoke Call the 24-hour crisis hotline for domestic abuse at Isak Burgos MD R1 Dec 07, 2017 09:09
[2017-12-07] MEDS ORDERED: SODIUM CHLORIDE 0.9% INJ 0 ML ONE (12:10)
[2017-12-07] MEDS ORDERED: METHYLERGONOVINE MALEATE 0.2 MG/ML VIAL ONE (12:11)
[2017-12-07] MEDS ORDERED: MISOPROSTOL 200 MCG TAB ONE (12:11)
[2017-12-07] MEDS ORDERED: TRANEXAMIC ACID INJ 1,000 MG/10 ML AMP ONE (12:11)
[2017-12-07] MEDS ORDERED: CARBOPROST TROMETHAMINE 250 MCG/ML VIAL ONE (12:12)
== END 2017-12-07 13:39 | disposition home or self-care (01) | DRG 775 ==
LOC: HOBED 09:48 → H2EB 10:35 → H1EA 23:03
PROVIDERS: ADMIT Obstetrics & Gynecology Maternal & Fetal Medicine; ATTEND Obstetrics & Gynecology Maternal & Fetal Medicine
PROC: 10E0XZZ Delivery of Products of Conception, External Approach (ICD-10-PCS; principal; 2017-12-05)
PROC: 0HQ9XZZ Repair Perineum Skin, External Approach (ICD-10-PCS; 2017-12-05)
DX: O99.334 Smoking (tobacco) complicating childbirth (principal); O69.1XX0 Labor and delivery complicated by cord around neck, with compression, not applicable or unspecified; O71.4 Obstetric high vaginal laceration alone; Z37.0 Single live birth; Z3A.40 40 weeks gestation of pregnancy
CPT/HCPCS: 59025; 80307; 81001; 85025; 85461; 86850; 86900; 86901; 90384; J2210; J2590; J2790; J7120